=== PATIENT | female | born 1955 | race Caucasian/White ===

== ENCOUNTER → 2016-10-14 | Outpatient (CLI) | payer OTHER ==
--- NOTE | 2016-10-14 16:39 | DX ---
Bilateral Hips, Two Views Each. HISTORY: Hip and buttock pain. Polyarthralgia. FINDINGS: Normal underlying mineralization. There is slight joint narrowing and subarticular sclerosi s and periarticular spurring at the superior acetabulum of both hips. Sclerosis is seen at the symphy sis pubis. No evidence for acute fracture or dislocation. Degenerative disk disease lower lumbar spin e. 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 Moderate sclerosis of the symphysis pubis wh ich could be from prior degenerative change, stress fracture, or osteitis pubis. 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
== END ==
LOC: BRMIMAGING 14:44
PROVIDERS: ATTEND Internal Medicine
DX: M25.80 Other specified joint disorders, unspecified joint (principal); M51.36 Other intervertebral disc degeneration, lumbar region
CPT/HCPCS: 73521-PO